=== PATIENT | male | born 1970 | race Caucasian/White ===

== ENCOUNTER → 2022-12-02 | Outpatient (CLI) | payer MEDICARE ==
--- NOTE | 2022-12-05 10:50 | MR ---
EXAMINATION TYPE: MR cervical spine wo con DATE OF EXAM: 12/02/2022 COMPARISON: None HISTORY: Pain right side of neck down into right shoulder, arm, hand, Numbness CONTRAST: Performed utilizing 0 mL intravenous Gadavist gadolinium contrast. TECHNIQUE: Multiplanar multiecho imaging on a 3.0 Molly magnet is performed through the cervical spin e. FINDINGS: The craniovertebral junction is normal. Vertebral body alignment is normal. Signal withi n the spinal cord appears preserved. C7-T1: Minimal right paracentral and right lateral disc bulge is present with anterior thecal sac co mpression. Moderate right foraminal stenosis present. No cord contact or cord.. C6-7: There is a large central disc herniation extending beyond the endplates at C6-7. This has large thecal sac compression. No AP spinal canal stenosis. There is some prominence of the left C6 exiting nerve which has contact with the disc herniation. Correlate with radicular symptoms. Severe bilater al foraminal stenosis is present. C5-6: Broad-based disc bulge is present. This is greater in the left paracentral region which has cor d contact. Some minimal cord flattening at this level may be present. AP spinal canal stenosis is not present. There is moderate to severe bilateral foraminal.. C4-5: Mild central disc bulge is present with anterior sac compression. No cord contact is evident. N o AP spinal canal stenosis. Foramina are patent.. C3-4: No focal disc herniation or significant disc bulge is evident. No spinal canal stenosis or zulema ral foraminal stenosis is present. C2-3: No focal disc herniation or significant disc bulge is evident. No spinal canal stenosis or zulema ral foraminal stenosis is present. IMPRESSION: 1. Left paracentral disc bulge with cord contact and mild cord flattening at C5-6. 2. Large C6-7 disc bulge with cord contact. No cord deformity or AP spinal canal is. 3. Small central disc bulge with anterior thecal sac compression. 4. Moderate to severe foraminal narrowing C5-6 severe bilateral foraminal stenosis C6-7
== END | disposition home or self-care (01) ==
LOC: RADMRIMAIN 20:45
PROVIDERS: ATTEND Internal Medicine
DX: M50.222 Other cervical disc displacement at C5-C6 level (principal); M99.71 Connective tissue and disc stenosis of intervertebral foramina of cervical region
CPT/HCPCS: 72141

== ENCOUNTER → 2023-05-15 | Outpatient (CLI) | payer MEDICARE ==
--- NOTE | 2023-05-16 05:47 | CTL ---
EXAMINATION TYPE: CT Low Dose Lung DATE OF EXAM ORDERED: 05/15/2023 HISTORY: Screen for malignancy. Lung cancer screening CT DLP: 99.[address] CTDI: 2.3 mGy Automated exposure control for dose reduction was used. SCREENING VISIT: Initial COMPARISON: None TECHNIQUE: Low dose computed tomography scan was performed through the chest at 1 mm thick sections a nd reconstructed images in multiple planes at 1 mm and [address] DIAGNOSTIC QUALITY: Satisfactory FINDINGS: LUNG NODULES: None. RLL 7.[address] image 252 of 366. This nodule is solid. RML 5.[address] image 241 of 366. This nodule is solid. Lingular 4.[address] image 260 of 366. This nodule is solid. LUNGS: COPD: Severity: None Fibrosis: Severity: None Lymph nodes: Other findings: RIGHT PLEURAL SPACE: Effusion: None Calcification: Coronary calcifications noted. Thickening: None Pneumothorax: None LEFT PLEURAL SPACE: Effusion: None Calcification: None Thickening: None Pneumothorax: None HEART: Heart Size: Normal Coronary Calcification: None Pericardial Effusion: None OTHER FINDINGS: Upper abdomen: None Bony thorax: None Supraclavicular region: None Other: None IMPRESSION: CT LUNG RAD AND CT CHEST RECOMMENDATION: Lung-RADS Assessment Category 3/S; recommend 6 month follow- up LDCT. S Modifier (other clinically significant findings): Coronary calcifications.
== END | disposition home or self-care (01) ==
LOC: RADCTMAIN 17:53
PROVIDERS: ATTEND Internal Medicine
DX: Z12.2 Encounter for screening for malignant neoplasm of respiratory organs (principal); F17.210 Nicotine dependence, cigarettes, uncomplicated
CPT/HCPCS: 71271

== ENCOUNTER → 2023-11-06 | Outpatient (CLI) | payer MEDICARE | LOC: PNWHC3 12:00 | PROVIDERS: ATTEND Specialist | DX: M54.12 Radiculopathy, cervical region | CPT/HCPCS: 99211 ==

== ENCOUNTER → 2024-03-12 | Outpatient (CLI) | payer MEDICARE, OTHER ==
--- NOTE | 2024-03-12 19:39 | CTL ---
EXAMINATION TYPE: CT Low Dose Lung DATE OF EXAM: 03/12/2024 5:24 PM COMPARISON: Previous CT Low Dose Lung cancer screening study dated 05/15/2023. CLINICAL INDICATION: Male, 54 years old with history of R91.8 ABNORMAL FINDING OF LUNG FIELD; Curren t smoker, 1 ppd x 20 years, history of tobacco use. TECHNIQUE: Multiple axial non-contrast scans were obtained from approximately the lung apices through the upper abdomen. Coronal and sagittal reformatted images were obtained. Low dose technique was uti lized. MIP were created on a separate workstation and submitted for review. CT DLP: 108.7 mGycm, Automated exposure control for dose reduction was used. CT Contrast: FINDINGS: Lack of intravenous contrast and low dose technique limits the evaluation of the vascular and soft ti ssue structures. Heart size within normal limits. No pericardial effusion. Calcified atheromatous disease of the thora cic aorta without aneurysmal dilatation. Coronary artery calcification. No epiglottic mediastinal or axillary lymphadenopathy. Calcification in the partially visualized right thyroid lobe. Imaging through the lungs demonstrates centrilobular and paraseptal emphysema, most pronounced in the apices. Multiple scattered subcentimeter stable pulmonary nodules. For example, a 4 mm nodule in the right middle lobe series series 4 image 207). Stable 6 mm subpleural nodule in the right lower lobe (image 259). No new suspicious or enlarging pulmonary nodule or pulmonary mass. Partially visualized upper abdomen demonstrate no acute abnormality. IMPRESSION: No new suspicious or enlarging pulmonary nodule. CT LUNG RAD AND CT CHEST RECOMMENDATION: Lung-Rad 2 Benign Appearance or Behavior: Recommend return t o annual low-dose lung cancer screening. S Modifier (other clinically significant findings): None Recommend smoking cessation (if current smoker), or continuation of smoking cessation (if prior smoke r). Annual screening for lung cancer with low-dose computed tomography is recommended in adults ages 55 to 77 years who have a 30 pack-year smoking history and currently smoke or have quit within the pa st 15 years. Screening should be discontinued once a person has not smoked for 15 years or develops a health problem that substantially limits life expectancy or the ability or willingness to have curat antonieta lung surgery. Lung rads 2021 [email or web address] [facility], , 03/12/2024 7:37 PM
== END | disposition home or self-care (01) ==
LOC: RADCTMAIN 17:04
PROVIDERS: ATTEND Internal Medicine
DX: Z12.2 Encounter for screening for malignant neoplasm of respiratory organs (principal); R91.8 Other nonspecific abnormal finding of lung field; F17.210 Nicotine dependence, cigarettes, uncomplicated
CPT/HCPCS: 71271